=== PATIENT | male | born 1935 | race Caucasian/White ===

== ENCOUNTER 2019-03-04 13:45 | Outpatient (CLI) | payer MEDICARE ==
[~2019-03-04] VITALS: Ht 175.3 cm; Wt 90.7 kg
[~2019-03-04 13:45] MED LIST: FINA5TAB6 PO; LISI10TA2 PO; MULT-178 PO; PARO-49 PO; TAMS0.4C98 PO; TURM538C PO
== END 2019-03-04 14:12 | disposition home or self-care (01) ==
LOC: PREOP 13:45
PROVIDERS: ATTEND Urology
DX: Z01.818 Encounter for other preprocedural examination (principal)